=== PATIENT | female | born 1995 | race Caucasian/White ===

== ENCOUNTER → 2021-04-01 16:29 | Outpatient (CLI) | payer MEDICAID, SELFPAY ==
[2021-04-01 16:57] LABS: Basophils # 0.1 K/mm3 (0-0.2); Eosinophils # 0.2 K/mm3 (0.0-0.4); Eosinophils % 2.3 % (0.1-12.0); Hematocrit 41.1 % (37.0-47.0); Hemoglobin 13.9 g/dL (12.2-16.2); Lymphocytes # 2.4 K/mm3 (0.7-4.5); Lymphocytes % 36.7 % (10-50); Mean Corpuscular HGB Conc 33.8 g/dL (31.8-35.4); Mean Corpuscular Hemoglobin 32.5 pg (27.0-31.2); Mean Corpuscular Volume 96.3 fl (81-99); Mean Platelet Volume 7.6 fl (7.4-10.4); Monocytes # 0.4 K/mm3 (0.1-1.0); Monocytes % 5.4 % (1.7-9.3); Neutrophils # 3.6 K/mm3 (1.8-7.8); Neutrophils % 54.4 % (37.0-80.0); Platelet Count 243 K/mm3 (142-424); Red Blood Count 4.27 M/mm3 (4.20-5.40); Red Cell Distribution Width 12.8 % (11.5-17.5); White Blood Count 6.5 K/mm3 (4.8-10.8)
[2021-04-01 17:31] LABS: Triiodothryronine (T3) Uptake 31 % (23.5-40.5)
[2021-04-01 17:32] LABS: Free Thyroxine Index 3.3 ug/dL (5.93-13.13); T4 (Thyroxine) 10.6 ug/dl (5.53-11.0)
[2021-04-01 17:46] LABS: Thyroid Stimulating Hormone 0.89 uIU/mL (0.465-4.68)
[2021-04-03 09:02] LABS: Estradiol 88.9 pg/mL (.); FSH 2.7 mIU/mL (.); LH 3.1 mIU/mL (.)
== END ==
PROVIDERS: Visit Provider Nurse Practitioner Obstetrics & Gynecology
DX: N92.6 Irregular menstruation, unspecified (principal)
CPT/HCPCS: 82670; 83001; 83002; 84436; 84443; 84479; 85025

== ENCOUNTER → 2021-04-06 13:14 | Outpatient (CLI) | payer MEDICAID, SELFPAY ==
--- NOTE | 2021-04-06 13:15 | US_ITS ---
PROCEDURE: US TRANSVAGINAL CLINICAL INDICATION: pelvic pain COMPARISON: No exams were available for comparison FINDINGS: UTERUS: 9cm x 6cmx 4cm with a combined endometrial thickness of 4.9mm. There is some suspected fluid and debris within the endometrial canal. The patient is currently menstruating. LEFT OVARY: [id number] with a volume of 17.2ml. Multiple small ovarian follicles the largest at 1.5 cm. RIGHT OVARY: [id number] with a volume of 8.1ml. Small amount fluid is present in the cul-de-sac. IMPRESSION: Fluid and debris within the endometrial canal which may be related to patient's menstrual stage. Small amount fluid in the cul-de-sac. 1.5 cm left ovarian cyst and other small follicles on the left Dictated by: Tomás Iqbal MD 04/06/2021 16:15 Tomás Iqbal MD in [facility] 04/06/2021 16:15
== END ==
PROVIDERS: Visit Provider Nurse Practitioner Obstetrics & Gynecology
DX: R10.2 Pelvic and perineal pain (principal)
CPT/HCPCS: 76830

== ENCOUNTER → 2021-12-09 04:00 | Outpatient (CLI) | payer MEDICAID, SELFPAY ==
[2021-12-09 17:20] LABS: Chloride 103 mmol/L (98-107); Potassium 4.5 mmoL/L (3.5-5.1); Sodium 136 mmol/L (136-145)
[2021-12-09 17:21] LABS: Basophils # 0.1 K/mm3 (0-0.2); Basophils % 1.9 % (0.1-2.0); Eosinophils # 0.2 K/mm3 (0.0-0.4); Hemoglobin 13.8 g/dL (12.2-16.2); Lymphocytes # 1.9 K/mm3 (0.7-4.5); Lymphocytes % 33.5 % (10-50); Mean Corpuscular HGB Conc 31.4 g/dL (31.8-35.4); Mean Corpuscular Hemoglobin 32.1 pg (27.0-31.2); Mean Corpuscular Volume 102.3 fl (81-99); Mean Platelet Volume 9.9 fl (7.4-10.4); Monocytes # 0.4 K/mm3 (0.1-1.0); Monocytes % 6.3 % (1.7-9.3); Neutrophils # 3.1 K/mm3 (1.8-7.8); Neutrophils % 55.2 % (37.0-80.0); Platelet Count 231 K/mm3 (142-424); Red Cell Distribution Width 12.8 % (11.5-17.5); White Blood Count 5.6 K/mm3 (4.8-10.8)
[2021-12-09 17:22] LABS: Blood Urea Nitrogen 9 mg/dl (7-17); Estimated Glomerular Filt Rate 100 ml/min (>60); GFR (African American) 121 ML/MIN (>60)
[2021-12-09 17:23] LABS: Alanine Aminotransferase 27 U/L (12-78); Albumin Level 4.5 g/dl (3.5-5.0); Albumin/Globulin Ratio 1.6 (1.1-1.8); Alkaline Phosphatase 74 U/L (38-126); Anion Gap 10.5 mEq/L (5-15); Aspartate Amino Transferase 33 U/L (14-36); Bilirubin,Total 0.4 mg/dl (0.2-1.3); Calcium 8.8 mg/dl (8.4-10.2); Carbon Dioxide 27 mmol/L (22.0-30.0); Chol/HDL Ratio 3.9 (1-3.5); Cholesterol 148 mg/dl (140-200); Globulin 2.9 g/dL (1.3-3.2); Glucose 79 mg/dl (74-100); HDL Cholesterol 38 mg/dl (40-60); Total Protein,Serum 7.4 g/dl (6.3-8.2); Triglycerides 49 mg/dl (30-150); VLDL Cholesterol 10 mg/dL (0-40)
[2021-12-09 17:28] LABS: HCG Qualitative, Serum Negative (Negative)
[2021-12-09 17:54] LABS: Direct LDL Cholesterol 90.05 mg/dL (100-129)
[2021-12-09 18:06] LABS: 25-OH Vitamin D, Total < 12.8 ng/mL (30-100)
[2021-12-09 18:12] LABS: Thyroid Stimulating Hormone 7.51 uIU/mL (0.465-4.68)
[2021-12-09 18:31] LABS: Vitamin B12 353 pg/mL (239-931)
[2021-12-11 09:02] LABS: HSV 1 IgG, Type Spec <0.91 index (0.00-0.90); HSV 2 IgG, Type Spec <0.91 index (0.00-0.90)
[2021-12-11 09:23] LABS: HIV Screen 4th Generation wRfx Non Reactive (Non Reactive)
[2021-12-11 10:13] LABS: Rapid Plasma Reagin Ab Titer Non Reactive (NonRea<1:1)
[2021-12-11 12:13] LABS: Hep A Ab, IgM Negative (Negative); Hepatitis B Core Antibody IgM Negative (Negative); Hepatitis B Surface Antigen Negative (Negative); Hepatitis C Antibody <0.1 s/co ratio (0.0-0.9)
== END ==
PROVIDERS: PCP Physician Assistant; Visit Provider Physician Assistant
DX: N92.6 Irregular menstruation, unspecified (principal); E55.9 Vitamin D deficiency, unspecified
CPT/HCPCS: 80053; 80061; 80074; 82306; 82607; 84443; 84703; 85025; 86592; 86695; 86703; 86790; G0432

== ENCOUNTER → 2021-12-23 13:42 | Outpatient (CLI) | payer MEDICAID, SELFPAY | PROVIDERS: Visit Provider Physician Assistant | DX: N76.0 Acute vaginitis (principal) | CPT/HCPCS: 87210 ==

== ENCOUNTER 2022-06-20 13:21 | Emergency (ER) | payer MEDICAID, SELFPAY ==
[2022-06-20 13:59] VITALS: BP 107/78; PULSE 91; RESP 17; TEMP 36.8; O2SAT 98; BMI 17.4
--- NOTE | 2022-06-20 14:32 | EXP.UTC ---
Discharge Plan Disposition Patient Disposition: Home, Self-Care Condition: Good Prescriptions Prescriptions: New triamcinolone acetonide 0.025 % ointment 1 applic topical BID Qty: 80 0RF prednisone [prednisone] 20 mg tablet 20 mg PO BID Qty: 10 0RF No Action cholecalciferol (vitamin D3) 25 mcg (1,000 unit) capsule 25 mcg PO DAILY Qty: 30 2RF cholecalciferol (vitamin D3) 1,250 mcg (50,000 unit) capsule 1,250 mcg PO WEEKLY Qty: 14 0RF levothyroxine 50 mcg capsule 50 mcg PO DAILY Qty: 90 3RF metronidazole 500 mg tablet 500 mg PO TID 10 Days Qty: 30 0RF Referrals Follow up/Referrals: Provider,Referral, MD [Primary Care Provider] - See instructions Clinical Impressions Clinical Impression: Contact dermatitis Discharge ED Provider: Nick ([facility] [place] HPI General Stated complaint: rash Mode of Arrival: Ambulatory Source of Information: Patient Limitations: No Limitations Time Seen by Provider: 06/20/22 14:32 Description of Symptoms (Recalled from Triage Doc. by RN): pt comes in with c/o rash on back, legs and stomach for 2 weeks. HEENT Symptoms (Recalled from RN notes): No Resp Symptoms (Recalled from RN notes): No Skin Symptoms (Recalled from RN notes): Yes MS Symptoms (Recalled from RN notes): No Functional Status (Recalled from RN notes): n/a History of Present Illness Provider Complaint: 27 yr old with c/o rash on back, legs and stomach for 2 weeks that is becoming worse and spreading. Related Data Previous Rx's Medication Instructions Recorded cholecalciferol (vitamin D3) 1,250 1,250 mcg PO WEEKLY #14 caps 12/10/21 mcg (50,000 unit) capsule cholecalciferol (vitamin D3) 25 25 mcg PO DAILY #30 caps 12/10/21 mcg (1,000 unit) capsule levothyroxine 50 mcg capsule 50 mcg PO DAILY #90 caps 12/11/21 metronidazole 500 mg tablet 500 mg PO TID BV 10 days #30 tabs 12/23/21 prednisone 20 mg tablet 20 mg PO BID #10 tabs 06/20/22 triamcinolone acetonide 0.025 % 1 applic topical BID #80 grams 06/20/22 topical ointment Allergies Allergy/AdvReac Type Severity Reaction Status Date / Time No Known Allergies Allergy Verified 06/20/22 14:02 Worker's Comp Is this a Worker's Comp case?: No PFSH PFSH Social History , [employer]) Smoking Status: Current every day smoker alcohol intake: never substance use type: denies use current occupational status: other Travel in the last 8 weeks: None ROS Obtained: Yes All systems reviewed & no additional complaints except as documented Constitutional Constitutional: Reports system reviewed and no additional complaints, except as documented and Denies fatigue Eyes Eyes: Reports system reviewed and no additional complaints, except as documented and Denies eye discharge ENT Ears, Nose, Mouth, and Throat: Reports system reviewed and no additional complaints, except as documented and Denies hearing loss Cardiovascular Cardiovascular: Reports system reviewed and no additional complaints, except as documented and Denies claudication Respiratory Respiratory: Reports system reviewed and no additional complaints, except as documented Gastrointestinal Gastrointestingal: Reports system reviewed and no additional complaints, except as documented; Denies coffee ground emesis Genitourinary Female Genitourinary: Reports system reviewed and no additional complaints, except as documented Integumentary/Breasts Skin/Breast: Reports system reviewed and no additional complaints, except as documented, Reports dry skin, Reports pruritus and Reports rash Neurologic Neurologic: Reports system reviewed and no additional complaints, except as documented Endocrine Endocrine: Denies fatigue Hematologic/Lymphatic Henatologic/Lymphatic: Reports system reviewed and no additional complaints, except as documented Allergic/Immunologic Allergic/Immunologic: Reports system reviewed and no additional complaints, exc
[2022-06-20 14:57] VITALS: BP 107/78; PULSE 91; RESP 17; TEMP 36.8
== END 2022-06-20 14:58 | disposition home or self-care (01) ==
PROVIDERS: Emergency Provider Nurse Practitioner Family
DX: L25.9 Unspecified contact dermatitis, unspecified cause (principal)
CPT/HCPCS: 96372; 99212; G0463